=== PATIENT | female | born 1935 | race Caucasian/White ===

== ENCOUNTER 2016-06-07 23:22 | Emergency (ER) | payer MEDICARE, OTHER ==
[~2016-06-07 23:22] MED LIST: ACETAMINOPHEN325 M2 PO; ACIPHEX20 M1 PO; ACIPHEX20 MG; ACIPHEX20 MG PO; ANTIVERT25 MG PO; ASPIRIN EC81 MG PO; AZMACORT20 G1; AZMACORT20 G1 IH; CALCIUM +D & M1 EAC1 PO; CARBAMAZEPINE PO; DIAZEPAM5 M; DIAZEPAM5 M PO; DULCOLAX5 M1 PO; DULCOLAX5 MG; DULCOLAX5 MG PO; FISH OIL 1,0001 CA PO; FISH OIL 1,0001 CA1; FISH OIL 1,0001 CA1 PO; FISH OIL 1,0001 EA10 PO; FLEXERIL10 MG PO; FOLIC ACID1 M1 PO; FOLIC ACID1 MG; FOLIC ACID1 MG PO; HYDROCHLOROTHIA25 M1 PO; HYDROCHLOROTHIA25 MG; HYDROCHLOROTHIA25 MG PO; IBUPROFEN200 M2 PO; K-DUR20 ME1 PO; K-DUR20 MEQ; KLOR-CON M20 MEQ/TAB PO; LEVAQUIN500 M1 PO; NORCO 5/325 TAB1 TAB PO; OMNICEF300 MG PO; PLAVIX75 M1 PO; PLAVIX75 MG; PLAVIX75 MG PO; POTASSIUM CHLO20 ME3 PO; POTASSIUM CHLO20 MEQ PO; PREMARIN0.625 MG PO; PREMARIN0.625 MG/T PO; SIMVASTATIN20 MG PO; TEGRETOL X100 MG/TAB PO; TEGRETOL XR100 MG; TEGRETOL XR400 MG; TEGRETOL XR400 MG PO; TYLENOL325 MG; TYLENOL325 MG PO; VALIUM10 M1 PO; VALIUM5 M1 PO; VITAMIN D32000 UNI1 PO; VITAMIN D32000 UNI2 PO; VITAMIN E400 UNI1 PO; VITAMIN E400 UNI7 PO; VITAMIN E400 UNIT; ZITHROMAX250 MG PO; ZOCOR20 M1 PO; ZOCOR20 MG; ZOCOR20 MG PO; [UNRECOGNIZED DRUG - OTHER]; [UNRECOGNIZED DRUG - OTHER] PO; [UNRECOGNIZED DRUG - OTHER] PO
[2016-06-08] MEDS ORDERED: MEDROL4 M1 PO ×2 (00:36→07:52)
[2016-06-08] MEDS ORDERED: LASIX20 M1 PO (07:50)
[2016-06-08] MEDS ORDERED: CLARITIN10 M6 PO (07:51)
[2016-06-08] MEDS ORDERED: HYDROCHLOROTHIA25 M1 PO (07:57)
[2016-06-09] MEDS ORDERED: XOPENEX HFA15 G1 INH (09:59)
[2016-06-09] MEDS ORDERED: MEDROL4 M1 PO (10:29)
[2016-06-09] MEDS ORDERED: PROTONIX40 M2 PO (14:42)
[2016-06-09] MEDS ORDERED: HYDROXYZINE HCL25 M1 PO (14:52)
[2016-12-25] MEDS ORDERED: GLUCOPHAGE500 M3 PO (11:54)
[2016-12-25] MEDS ORDERED: ZYRTEC10 M7 PO (12:05)
[2016-12-25] MEDS ORDERED: CALCIUM 600 +1 EA12 PO (12:05)
[2016-12-25] MEDS ORDERED: POTASSIUM CHLO20 ME3 PO (12:34)
[2016-12-25] MEDS ORDERED: VISINE ALLERGY15 ML OP (14:00)
== END 2016-06-08 00:50 ==
LOC: EDMED 23:22
DX: T78.40XA Allergy, unspecified, initial encounter (principal); I10 Essential (primary) hypertension; E78.00 Pure hypercholesterolemia, unspecified
CPT/HCPCS: J2930

== ENCOUNTER 2016-06-08 08:20 | Observation (INO) | payer MEDICARE, OTHER ==
[2016-06-08 07:27] LABS: BASO % 0.1 % (0-2); EOS % 0.1 % (0-7); IMMATURE GRANULOCYTES ABSOLUTE 0.02 tho/cmm (0-0.03); IMMATURE GRANULOCYTES PERCENT 0.3 % (0-0.3); LYMPH ABSOLUTE COUNT 1.4 tho/cmm (0.8-4.5); MCH (MEAN CORPUSCULAR HGB) 31.5 pg (28.0-32.0); MCHC MEAN CORPUSCULAR HGB CONC 34.1 % (32.0-36.0); MCV (MEAN CELL VOLUME) 92.3 fl (82.0-96.0); MEAN PLATELET VOLUME 9.8 cmc (9.4-12.4); MONO % 2.7 % (0-12); MONOCYTE ABSOLUTE COUNT 0.2 tho/cmm (0.0-1.2); NEUTROPHIL ABSOLUTE COUNT 5.7 tho/cmm (1.6-8.0); NEUTROPHIL-AUTOMATED 5.7 tho/cmm (1.6-8.0); NEUTROPHILS % 77.8 % (40-80); PLATELET COUNT 209 tho/cmm (150-450); RED BLOOD COUNT 4.44 mil/cmm (4.00-5.20); WHITE BLOOD COUNT 7.3 tho/cmm (4.0-10.0)
[2016-06-08 07:50] LABS: ANION GAP 13 mmol/L (0-20); BLOOD UREA NITROGEN 24 mg/dl (6-24); CALCIUM 8.7 mg/dl (8.5-10.5); CARBON DIOXIDE-VENOUS 29 mmol/L (22-32); CHLORIDE 101 mmol/l (96-110); CREATININE 1.01 mg/dl (0.50-1.10); GLUCOSE 239 mg/dL (70-110); SODIUM 139 mmol/L (135-145); eGFR VALUE FOR BLACK 60 mL/Min
[2016-06-08 07:51] LABS: POTASSIUM 4.1 mmol/L (3.7-5.1)
[~2016-06-08 08:20] MED LIST changes: +CLARITIN10 M6 PO; +LASIX20 M1 PO; +MEDROL4 M1 PO
[2016-06-09] MEDS ORDERED: XOPENEX HFA15 G1 INH (09:59)
[2016-06-09] MEDS ORDERED: MEDROL4 M1 PO (10:29)
[2016-06-09] MEDS ORDERED: PROTONIX40 M2 PO (14:42)
[2016-06-09] MEDS ORDERED: HYDROXYZINE HCL25 M1 PO (14:52)
[2016-12-25] MEDS ORDERED: GLUCOPHAGE500 M3 PO (11:54)
[2016-12-25] MEDS ORDERED: ZYRTEC10 M7 PO (12:05)
[2016-12-25] MEDS ORDERED: CALCIUM 600 +1 EA12 PO (12:05)
[2016-12-25] MEDS ORDERED: POTASSIUM CHLO20 ME3 PO (12:34)
[2016-12-25] MEDS ORDERED: VISINE ALLERGY15 ML OP (14:00)
== END 2016-06-09 15:30 ==
LOC: EDMED 08:20 → EMR2 13:05 → CAR1 13:08
PROVIDERS: Emergency Medicine; ADMIT Internal Medicine Interventional Cardiology
DX: R07.89 Other chest pain (principal); E78.5 Hyperlipidemia, unspecified; E11.9 Type 2 diabetes mellitus without complications; L50.9 Urticaria, unspecified; M19.90 Unspecified osteoarthritis, unspecified site; E03.9 Hypothyroidism, unspecified; I10 Essential (primary) hypertension; Z90.49 Acquired absence of other specified parts of digestive tract; Z79.899 Other long term (current) drug therapy; Z79.890 Hormone replacement therapy; Z86.73 Personal history of transient ischemic attack (TIA), and cerebral infarction without residual deficits
CPT/HCPCS: A9500; G0378; J2785; J2920; J7030